=== PATIENT | female | born 1965 | race Caucasian/White ===

== ENCOUNTER 2017-12-14 11:04 | Outpatient (CLI) | payer OTHER | END 2017-12-14 11:11 | disposition home or self-care (01) | LOC: SONOGRAMA 11:04 | DX: E04.1 Nontoxic single thyroid nodule (principal) ==

== ENCOUNTER 2025-03-17 10:51 | Outpatient (CLI) | payer OTHER | END 2025-03-17 10:53 | disposition home or self-care (01) | LOC: SONOGRAMA 10:51 | PROVIDERS: ATTEND Pathology Anatomic Pathology | DX: D34 Benign neoplasm of thyroid gland (principal); E07.89 Other specified disorders of thyroid; E04.2 Nontoxic multinodular goiter ==